=== PATIENT | female | born 1965 | race African-American/Black ===

== ENCOUNTER 2016-09-17 09:45 | Emergency (ER) | payer OTHER, SELFPAY ==
--- NOTE | 2016-09-17 20:55 | RAD ---
LEFT ANKLE THREE VIEWS 09/17/16 Considerable soft tissue swelling is seen laterally. No acute fracture was identified. The ankle kurt nt appears intact and the articular surfaces are smooth. IMPRESSION: Lateral swelling. POS: HOME
== END 2016-09-17 10:40 | disposition home or self-care (01) ==
LOC: BURERS 09:45
DX: S93.402A Sprain of unspecified ligament of left ankle, initial encounter (principal); X50.1XXA Overexertion from prolonged static or awkward postures, initial encounter

== ENCOUNTER 2017-06-17 13:01 | Emergency (ER) | payer SELFPAY ==
[2017-06-17 14:00] LABS: #Basophils 0.1 thou/uL (0.0-0.2); #Lymphocytes 1.3 thou/uL (1.20-3.40); #Monocytes 0.9 thou/uL (0.11-0.59); #Neutrophils 14.6 thou/uL (1.40-6.50); %Basophils 0.4 % (0.0-1.0); %Lymphocytes 7.4 % (21.0-51.0); %Monocytes 5.3 % (0.0-10.0); %Neutrophils 86.8 % (42.0-75.0); Hemoglobin 14.8 g/dL (12.0-16.0); Mean Corpuscular HGB CONC 34.3 g/dL (32.0-36.0); Mean Corpuscular Hemoglobin 29.2 pg (27.0-31.0); Mean Corpuscular Volume 85.2 fl (81.0-99.0); Mean Platelet Volume 6.4 fL (7.4-10.4); Platelet Count 325 thou/uL (130-400); RBC Distribution Width 12.9 % (11.5-14.5); Red Blood Cell (RBC) Count 5.09 mill/uL (4.20-5.40); White Blood Cell (WBC) Count 16.8 thou/uL (4.8-10.8)
[2017-06-17] MEDS ORDERED: Ondansetron HCl/PF 4 MG/2 ML Vial ONE ×2 (14:04→16:42)
[2017-06-17] MEDS ORDERED: Famotidine In NaCl 20 mg/50 ml Premix Bag ONE (14:04)
[2017-06-17 14:17] LABS: ALT (SGPT) 41 U/L (8-55); AST (SGOT) 47 U/L (5-34); Albumin 4.1 g/dL (3.5-5.0); Alkaline Phosphatase 149 U/L (40-150); Anion Gap 24 mmol/L (10-20); BUN (Urea Nitrogen) 24 mg/dL (9.8-20.1); Bilirubin, Total 0.4 mg/dL (0.2-1.2); Calc. Creatinine Clearance 0 mL/min (70-130); Calcium 9.6 mg/dL (7.8-10.44); Carbon Dioxide 18 mmol/L (22-29); Chloride 103 mmol/L (98-107); Estimated GFR-MDRD 78; Globulin 4.1 g/dL (2.4-3.5); Glucose 90 mg/dL (70-105); Lipase 6 U/L (8-78); Protein, Total 8.2 g/dL (6.0-8.3); Sodium 142 mmol/L (136-145)
[2017-06-17 14:37] LABS: Potassium 2.8 mmol/L (3.5-5.1)
[2017-06-17] MEDS ORDERED: diphenhydrAMINE 50 MG/ML VIAL ONE (15:47)
[2017-06-17] MEDS ORDERED: Prochlorperazine 10 MG/2 ML VIAL ONE (15:47)
[2017-06-17 15:51] LABS: Bilirubin Small (Negative); Blood, Urine Small (Negative); Clarity Cloudy (Clear); Glucose, Urine (Dipstick) Negative (Negative); Leukocyte Small (Negative); Nitrite Negative (Negative); Protein, Urine (Dipstick) 30 mg/dL (Neg-Trace); Specific Gravity, Urine 1.025 (1.005-1.030); Urobilinogen 0.2 mg/dL (0.2-1.0); pH, Urine 5.5 (5.0-9.0)
[2017-06-17 15:57] LABS: Bacteria/HPF 1+ HPF (None Seen); Crystals/HPF None Seen HPF (Negative); Hyaline Casts/LPF NONE SEEN LPF (0-3 Hyaline); Other Casts/LPF None Seen LPF (0-3 Hyaline); Oval Fat Bodies/HPF None Seen HPF (None Seen); RBC/HPF 0-3 HPF (0-3); Renal Epithelial None Seen HPF (0-3); Sperm/HPF None Seen HPF (None Seen); Squamous Epithelial 0-3 HPF (0-3); Transitional Epithelial NONE SEEN HPF (0-3); Trichomonas/HPF None Seen HPF (None Seen); WBC/HPF 0-3 HPF (0-3); Yeast-All Forms None Seen HPF (None Seen)
[2017-06-17 15:58] LABS: Amphetamine Not Detected (NotDetected); Barbiturates Screen Not Detected (NotDetected); Benzodiazepine Screen Not Detected (NotDetected); Cocaine Metabolite Screen Not Detected (NotDetected); Medtox Control Line Valid? VALID (VALID); Methadone Not Detected (NotDetected); Methamphetamine Not Detected (NotDetected); Opiate Screen Not Detected (NotDetected); Oxycodone Screen Not Detected (NotDetected); Phencyclidine (PCP) Not Detected (NotDetected); THC/Cannabinoid Screen Not Detected (NotDetected); Tricyclic Screen Not Detected (NotDetected)
[2017-06-17 17:00] LABS: CKMB 4.5 ng/mL (0-6.6); Troponin I 0.024 ng/mL (< 0.028)
== END 2017-06-17 17:24 | disposition home or self-care (01) ==
LOC: BURERS 13:01
DX: E87.6 Hypokalemia (principal); F32.9 Major depressive disorder, single episode, unspecified; Z79.82 Long term (current) use of aspirin; Z79.899 Other long term (current) drug therapy
CPT/HCPCS: 36415; 80053; 80306; 81003; 81015; 82553; 83690; 84484; 85025; 96361; 96365; 96366; 96375; 96376; J0780; J1200; J2405

== ENCOUNTER 2017-06-18 11:20 | Emergency (ER) | payer SELFPAY ==
[2017-06-18] MEDS ORDERED: clonazePAM 0.5 MG TAB PO SCH (12:45)
== END 2017-06-18 13:22 | disposition home or self-care (01) ==
LOC: BURERS 11:20
DX: F41.1 Generalized anxiety disorder (principal); F32.9 Major depressive disorder, single episode, unspecified; Z79.899 Other long term (current) drug therapy; Z79.82 Long term (current) use of aspirin
CPT/HCPCS: 99283

== ENCOUNTER 2017-07-04 14:35 | Emergency (ER) | payer SELFPAY ==
[2017-07-04] MEDS ORDERED: Lorazepam 0.5 MG TAB ONE (14:50)
== END 2017-07-04 15:05 | disposition home or self-care (01) ==
LOC: BURERS 14:35
DX: F41.9 Anxiety disorder, unspecified (principal); F32.9 Major depressive disorder, single episode, unspecified; Z79.82 Long term (current) use of aspirin; Z79.899 Other long term (current) drug therapy
CPT/HCPCS: 99283

== ENCOUNTER 2017-07-18 22:09 | Emergency (ER) | payer SELFPAY ==
[2017-07-18] MEDS ORDERED: Prochlorperazine 10 MG/2 ML VIAL ONE (22:36)
== END 2017-07-18 23:15 | disposition home or self-care (01) ==
LOC: BURERS 22:09
DX: R11.2 Nausea with vomiting, unspecified (principal); F41.9 Anxiety disorder, unspecified; F32.9 Major depressive disorder, single episode, unspecified; Z79.82 Long term (current) use of aspirin; Z79.899 Other long term (current) drug therapy
CPT/HCPCS: 96361; 96374; J0780

== ENCOUNTER 2017-08-16 12:52 | Emergency (ER) | payer SELFPAY ==
[2017-08-16] MEDS ORDERED: Lorazepam 0.5 MG TAB ONE (13:13)
== END 2017-08-16 13:25 | disposition home or self-care (01) ==
LOC: BURERS 12:52
DX: F41.9 Anxiety disorder, unspecified (principal); Z79.82 Long term (current) use of aspirin; Z79.899 Other long term (current) drug therapy
CPT/HCPCS: 99283

== ENCOUNTER 2017-09-27 16:06 | Emergency (ER) | payer SELFPAY ==
[2017-09-27] MEDS ORDERED: Lorazepam 2 MG/ML VIAL ONE (16:26)
[2017-09-27 17:02] LABS: #Basophils 0.2 thou/uL (0.0-0.2); #Lymphocytes 1.4 thou/uL (1.20-3.40); #Monocytes 1.1 thou/uL (0.11-0.59); #Neutrophils 14.6 thou/uL (1.40-6.50); %Basophils 1.1 % (0.0-1.0); %Lymphocytes 8.1 % (21.0-51.0); %Monocytes 6.6 % (0.0-10.0); %Neutrophils 84.3 % (42.0-75.0); Hemoglobin 13.7 g/dL (12.0-16.0); Mean Corpuscular HGB CONC 34.7 g/dL (32.0-36.0); Mean Corpuscular Hemoglobin 27.3 pg (27.0-31.0); Mean Corpuscular Volume 78.7 fL (78.0-98.0); Mean Platelet Volume 5.4 fL (7.4-10.4); Platelet Count 307 thou/uL (130-400); Red Blood Cell (RBC) Count 5.03 mill/uL (4.20-5.40); White Blood Cell (WBC) Count 17.3 thou/uL (4.8-10.8)
[2017-09-27 17:20] LABS: ALT (SGPT) 43 U/L (8-55); AST (SGOT) 37 U/L (5-34); Albumin 3.9 g/dL (3.5-5.0); Alkaline Phosphatase 131 U/L (40-150); Anion Gap 23 mmol/L (10-20); BUN (Urea Nitrogen) 19 mg/dL (9.8-20.1); Bilirubin, Total 0.7 mg/dL (0.2-1.2); Calc. Creatinine Clearance 0 mL/min (70-130); Calcium 9.6 mg/dL (7.8-10.44); Carbon Dioxide 17 mmol/L (22-29); Chloride 103 mmol/L (98-107); Estimated GFR-MDRD Greater than 90; Globulin 3.9 g/dL (2.4-3.5); Glucose 104 mg/dL (70-105); Protein, Total 7.8 g/dL (6.0-8.3); Sodium 140 mmol/L (136-145)
[2017-09-27 17:21] LABS: CKMB 0.8 ng/mL (0-6.6); Troponin I Less than 0.010 ng/mL (< 0.028)
[2017-09-27 17:25] LABS: Potassium 2.8 mmol/L (3.5-5.1)
[2017-09-27 17:29] LABS: Clarity Cloudy (Clear); Glucose, Urine (Dipstick) Negative (Negative); Leukocyte Trace (Negative); Nitrite Negative (Negative); Protein, Urine (Dipstick) 30 mg/dL (Neg-Trace); Specific Gravity, Urine 1.025 (1.005-1.030); Urobilinogen 0.2 mg/dL (0.2-1.0); pH, Urine 5.5 (5.0-9.0)
[2017-09-27 17:30] LABS: Bilirubin Moderate (Negative); Blood, Urine Small (Negative)
[2017-09-27 17:32] LABS: Bacteria/HPF 3+ HPF (None Seen); WBC/HPF 0-3 HPF (0-3)
[2017-09-27 17:33] LABS: Barbiturates Screen Not Detected (NotDetected); Benzodiazepine Screen Detected (NotDetected); Cocaine Metabolite Screen Not Detected (NotDetected); Methadone Not Detected (NotDetected); Opiate Screen Not Detected (NotDetected); Oxycodone Screen Not Detected (NotDetected); Phencyclidine (PCP) Not Detected (NotDetected); THC/Cannabinoid Screen Not Detected (NotDetected); Tricyclic Screen Not Detected (NotDetected)
[2017-09-27 17:34] LABS: Medtox Control Line Valid? VALID (VALID)
[2017-09-27 17:40] LABS: Amphetamine Not Detected (NotDetected)
[2017-09-27 17:41] LABS: Methamphetamine Detected (NotDetected)
[2017-09-27] MEDS ORDERED: Potassium Chloride 20 MEQ TAB ONE (17:48)
[2017-09-27] MEDS ORDERED: Lorazepam 0.5 MG TAB ONE (17:48)
== END 2017-09-27 18:00 | disposition home or self-care (01) ==
LOC: BURERS 16:06
DX: F41.1 Generalized anxiety disorder (principal); F15.10 Other stimulant abuse, uncomplicated; F41.9 Anxiety disorder, unspecified; Z79.899 Other long term (current) drug therapy
CPT/HCPCS: 36415; 80053; 80306; 81003; 81015; 82553; 84484; 85025; 99283; J2060

== ENCOUNTER 2017-10-27 16:29 | Emergency (ER) | payer SELFPAY ==
[2017-10-27] MEDS ORDERED: methylPREDNISolone Sod Succ/PF 125 MG/2 ML VIAL ONE (17:00)
[2017-10-27] MEDS ORDERED: Magnesium Sulfate 2 GM/100 ML BAG ONE (17:16)
[2017-10-27] MEDS ORDERED: Piperacillin/Tazobactam 3.375 GM VIAL ONE (17:16)
[2017-10-27 17:22] LABS: ALT (SGPT) 101 U/L (8-55); AST (SGOT) 49 U/L (5-34); Albumin 3.3 g/dL (3.5-5.0); Alkaline Phosphatase 178 U/L (40-150); Anion Gap 21 mmol/L (10-20); BUN (Urea Nitrogen) 13 mg/dL (9.8-20.1); Bilirubin, Total 1.3 mg/dL (0.2-1.2); Calc. Creatinine Clearance 0 mL/min (70-130); Calcium 9.3 mg/dL (7.8-10.44); Carbon Dioxide 18 mmol/L (22-29); Chloride 99 mmol/L (98-107); Estimated GFR-MDRD Greater than 90; Globulin 4.4 g/dL (2.4-3.5); Glucose 179 mg/dL (70-105); Protein, Total 7.7 g/dL (6.0-8.3); Sodium 135 mmol/L (136-145)
[2017-10-27 17:25] LABS: CKMB 1.6 ng/mL (0-6.6)
[2017-10-27 17:30] LABS: Hemoglobin 13.3 g/dL (12.0-16.0); Mean Corpuscular HGB CONC 35.5 g/dL (32.0-36.0); Mean Corpuscular Hemoglobin 26.5 pg (27.0-31.0); Mean Corpuscular Volume 74.7 fL (78.0-98.0); Platelet Count 377 thou/uL (130-400); RBC Distribution Width 12.6 % (11.5-14.5); Red Blood Cell (RBC) Count 5.01 mill/uL (4.20-5.40); White Blood Cell (WBC) Count 25.3 thou/uL (4.8-10.8)
[2017-10-27 17:31] LABS: Potassium 2.6 mmol/L (3.5-5.1)
[2017-10-27 17:32] LABS: Critical Call Chem Troponin I 0; Troponin I 0.331 ng/mL (< 0.028)
[2017-10-27 17:39] LABS: Lymphocytes 7 % (21-51); MDiff Complete? YES; Monocytes 1 % (0-10); Neutrophil 92 % (42-75)
[2017-10-27] MEDS ORDERED: Potassium Chloride 20 MEQ/100 ML PREMIX BAG ONE (17:43)
--- NOTE | 2017-10-27 21:01 | CT ---
CT ANGIO CHEST: 10/27/2017 HISTORY: A spiral CT of the chest was done for evaluation of shortness of breath and an elevated D-dimer. TECHNIQUE: Axial slices were acquired and then oblique coronal reformations were done through the pulmonary karishma martha. FINDINGS: There is good opacification of the pulmonary arteries with no sign of embolism in the more central br anches. The lower lobe branches are a bit difficult to see well. The aorta shows no aneurysm or dis section. There is a significant amount of hilar adenopathy bilaterally. There is also a small amount of media stinal adenopathy, particularly superior and lateral to the aortic arch. The patient's esophagus is dilated and fluid filled, down to nearly the GE junction. The cause is no t evident. There are diffuse alveolar and interstitial infiltrates throughout the lungs, all lobes. Air broncho grams are seen in some areas. There is sparing of some lobar segments. Looking at a 2015 CT of the abdomen, there was no sign of interstitial lung disease in the lung bases on those scans. Pulmonary edema seems more likely than pneumonia, though the latter is not excluded. It would be a r ather unusual pattern for it. There are no effusions. The adrenal glands are not seen optimally. The left adrenal gland seems a little perez than normal. I cannot exclude a small adrenal nodule on this side, but it is not proven by this scan. IMPRESSION: 1. No definite evidence of pulmonary embolism. Lower lobe vessels seen more poorly than elsewhere. 2. Diffuse severe interstitial and alveolar infiltrates, in a spotty pattern, all lobes, with some s paring of portions of lobes. The differential is mainly between pulmonary edema and infection. The former is thought to be a bit more likely. Chronic interstitial lung disease seems less likely, give n the normal appearance to the lobes on a 2015 scan. 3. Dilation of the esophagus, which is also fluid-filled, cause unknown. 4. Hilar and mediastinal adenopathy of unknown etiology. Lymphoproliferative diseases and infection are considerations. Findings discussed with Dr. Schwartz at 1823 hours on 10/27/2017. Further workup needed. CODE CR POS: HOME
--- NOTE | 2017-10-27 21:03 | RAD ---
PORTABLE CHEST: 10/27/2017 COMPARISON: 08/01/2017 FINDINGS: There are diffuse infiltrative changes in the lungs today, compared to before. Previously, only the lower lobes were markedly affected, though there were some infiltrative changes in the left upper lob e. The heart size is not at all enlarged. No gross effusions are seen. The right hilum looks a bit prominent in appearance. See comments on CT report. IMPRESSION: Diffuse pulmonary infiltrates, which have worsened since July. Pulmonary edema is a consideration, but infection and interstitial pneumonias are also a consideration. Further workup is needed. See C T report to follow. POS: HOME
== END 2017-10-27 19:12 | disposition short-term general hospital (02) ==
LOC: BURERS 16:29
DX: A41.9 Sepsis, unspecified organism (principal); J18.9 Pneumonia, unspecified organism; E87.6 Hypokalemia; R79.89 Other specified abnormal findings of blood chemistry; F41.9 Anxiety disorder, unspecified; Z79.899 Other long term (current) drug therapy
CPT/HCPCS: 36415; 71045; 71275; 80053; 82553; 83605; 83880; 84484; 85025; 85379; 87040; 93005; 94640; 94760; 96365; 96367; 96375; J2543; J2930; J3475; J3480; J7620